=== PATIENT | male | born 1970 | race Caucasian/White ===

== ENCOUNTER 2024-09-13 19:02 | Emergency (ER) | payer SELFPAY ==
[~2024-09-13] VITALS: Ht 167.6 cm; Wt 80.0 kg
[~2024-09-13 19:02] MED LIST: ASPI-1497 MT; ATOR40TA70 MT; Acetaminophen PO; CLOP-31 MT; CYCL10TA21 MT; GLIP10TA17 MT; LISI2.5T89 MT; METF-416 MT
[2024-09-13 19:06] VITALS: O2SAT 99
[2024-09-13 19:14] VITALS: BP 123/75; PULSE 100; RESP 18; TEMP 37.2; O2SAT 99
[2024-09-13 19:51] LABS: CARBON DIOXIDE 27 mEq/L (21-32); CHLORIDE 105 mEq/L (98-107); POTASSIUM 3.7 mEq/L (3.5-5.1); SODIUM 140 mEq/L (136-145)
[2024-09-13 19:52] LABS: CALCIUM 8.7 mg/dL (8.7-10.4)
[2024-09-13 19:57] LABS: CREATININE 0.7 mg/dL (0.6-1.3); GLUCOSE 175 mg/dL (70-105); UREA NITROGEN BLOOD 16 mg/dL (9-23)
[2024-09-13 20:02] LABS: EOSINOPHILS % 4.2 % (0.0-5.0); HEMATOCRIT. 40.9 % (42.0-52.0); HEMOGLOBIN. 13.5 g/dL (14.0-18.0); LYMPHOCYTES % 26.9 % (20.0-50.0); MEAN CORPUSCULAR HEMOGLOBIN 29.7 pg (28.0-32.0); MEAN CORPUSCULAR VOLUME 90.1 fL (80.0-94.0); MEAN PLATELET VOLUME 8.6 fl (7.4-10.4); MONOCYTES % 8.1 % (2.0-8.0); NEUTROPHILS % 59.8 % (40.0-76.0); PLATELET 210 x1000/uL (130-400); RED BLOOD CELL COUNT 4.54 mill/uL (4.7-6.1); RED CELL DISTRIBUTION WIDTH 13.3 % (11.6-14.6); WHITE BLOOD COUNT 5.9 x1000/uL (4.5-11.0)
[2024-09-14] MEDS ORDERED: METOCLOPRAMIDE HCL 10MG TABLET PO ONE (02:15)
[2024-09-14] MEDS ORDERED: ACETAMINOPHEN 500MG TABLET PO ONE (02:15)
[2024-09-14] MEDS: ACETAMINOPHEN 500MG TABLET PO NR (03:34)
[2024-09-14] MEDS: METOCLOPRAMIDE HCL 10MG TABLET PO NR (03:34)
== END 2024-09-14 06:05 | disposition home or self-care (01) ==
LOC: ER 19:12
DX: R51.9 Headache, unspecified (principal); E11.9 Type 2 diabetes mellitus without complications; E78.00 Pure hypercholesterolemia, unspecified; I10 Essential (primary) hypertension; Z79.02 Long term (current) use of antithrombotics/antiplatelets; Z79.82 Long term (current) use of aspirin; Z79.84 Long term (current) use of oral hypoglycemic drugs; Z79.899 Other long term (current) drug therapy; Z86.73 Personal history of transient ischemic attack (TIA), and cerebral infarction without residual deficits
CPT/HCPCS: 99284; 80048; 85025; 36415; 93005; 70450; J8597